=== PATIENT | female | born 1985 | race Caucasian/White ===

== ENCOUNTER 2022-09-13 12:00 | Observation (INO) | payer OTHER ==
[~2022-09-13] VITALS: Ht 154.9 cm; Wt 121.6 kg
[2022-09-13] MEDS ORDERED: PNV91TAB8 PO (15:20)
== END 2022-09-13 15:35 | disposition home or self-care (01) ==
LOC: MLD 12:00
PROVIDERS: ADMIT Obstetrics & Gynecology; ATTEND Obstetrics & Gynecology
DX: O62.9 Abnormality of forces of labor, unspecified (principal); Z3A.32 32 weeks gestation of pregnancy
CPT/HCPCS: 59025; 76819; 81000; G0378; Q0092